=== PATIENT | female | born 1990 | race Asian ===

== ENCOUNTER 2017-11-02 11:48 | Emergency (ER) | payer MEDICAID, OTHER ==
[~2017-11-02] VITALS: Ht 157.5 cm; Wt 70.5 kg
[2017-11-02] MEDS ORDERED: KETOROLAC TROMETHAMINE 30 MG/ML VIAL IM ONE (13:45)
[2017-11-02 14:32] VITALS: BP 106/57
== END 2017-11-02 14:45 | disposition home or self-care (01) ==
LOC: EMS 11:49
DX: J02.9 Acute pharyngitis, unspecified (principal)
CPT/HCPCS: 81025; 87430; 96372; 99283; J1885